=== PATIENT | male | born 1955 | race Caucasian/White ===

== ENCOUNTER → 2016-08-15 | Day surgery (SDC) | payer BC ==
[~2016-08-15] VITALS: Ht 180.3 cm; Wt 98.7 kg
[~2016-08-15] MED LIST: ASPIRIN EC81 MG PO; AZO STANDARD97.5 MG PO; BYSTOLIC10 MG PO; COLACE100 MG PO; COZAAR100 MG PO; CRESTOR40 MG PO; DITROPAN5 MG PO; FLOMAX0.4 MG PO; GLUCOPHAGE500 MG PO; NORCO 5-325 TA1 EACH PO; NORVASC5 MG PO; THERA-VITE W/ B1 TAB PO
--- NOTE | ~2016-08-15 | OR ---
PATIENT'S NAME: GILMA BRAMBILA [facility] AGE: 61 Y [address] ROOM: [place] [address] [place] [facility] [place] DATE: 08/15/2016 OR/Procedure Report DISCHARGE DATE: FAMILY PHYSICIAN: Jorge Castillo PA-C ATTENDING PHYSICIAN: RUBI WADE SURGEON: Rubi Wade MD TAXI PROPRIETOR: None. DATE OF PROCEDURE: 08/15/2016 PREOPERATIVE DIAGNOSES: 1. Left distal ureteral calculus. 2. History of gross hematuria. POSTOPERATIVE DIAGNOSES: 1. Left distal ureteral calculus. 2. History of gross hematuria. PROCEDURE: Left ureteroscopy, laser lithotripsy, ureteroscopic stone extraction, cystoscopy, and placement of indwelling left ureteral stent. ANESTHESIA ADMINISTERED: General endotracheal anesthesia. INDICATIONS FOR PROCEDURE: The patient is a pleasant 61-year-old male, who was initially evaluated for gross hematuria. During his workup, he was found to have a left distal 11 mm ureteral calculus. 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 He also did have somewhat of a high-riding bladder neck. The patient was explained the risks, benefits, indications, and alternatives of above procedure and wished to proceed and consented freely. DESCRIPTION OF OPERATION: The patient was brought back to the operating room, where he was placed on the OR table in the supine position. A surgical time- out was called where patient identification, surgical site, and procedure was then verified. We also did verify that the patient received IV Levaquin antibiotic within an hour of beginning the procedure. The patient was then moved and placed in a low lithotomy position. His genital area was then prepped and draped in the usual sterile fashion. I began by carefully advancing a rigid cystoscope easily into the patient's urinary bladder. His anterior urethra was within normal limits. His posterior urethra was notable for some moderate bilobar hyperplasia of the prostate with a high-riding bladder neck. Upon entering to his bladder, full joshi cystoscopy was performed. His ureteral orifices were noted to be in their orthotopic location. His bladder did have evidence of bladder outlet obstruction including moderate bladder trabeculations. Again, there was no evidence of any bladder stones, diverticula, cellules, or bladder tumors. I then PATIENT'S NAME: GILMA BRAMBILA [facility] AGE: 61 Y [address] ROOM: [place] [address] [place]ATION: [facility] [place]MIT DATE: 08/15/2016 OR/Procedure Report DISCHARGE DATE: FAMILY PHYSICIAN: Jorge Castillo PA-C ATTENDING PHYSICIAN: RUBI WADE carefully advanced a Sensor guidewire via his left ureteral orifice and was able to advance the wire past the left distal ureteral stone. I then emptied his bladder and then re-entered with a semi-rigid ureteroscope and utilized a second wire, to carefully navigate into his left distal ureter. I then came across the large distal ureteral stone, which appeared to be two sizable to extract without fragmentation. I then used the 600 micron holmium laser fiber to carefully fragment the stone. I used the [employer] stone basket to remove several of the larger stone fragments which were sent for stone analysis. On several repeat inspections on the ureter, there were no large residual fragments within the ureter nor was there any evidence of ureteral injury. I then withdrew the ureteroscope over the remaining wire, I advanced a 4.8- [place] multi-length ureteral stent deploying it, noting a good curl fluoroscopically in the patient's left renal collecting system as well as a good curl fluoroscopically in the patient's bladder. I then emptied the patient's bladder. The patient was then taken out of the lithotomy position where he was then awoken from general anesthesia, extubated, and transferred to the recovery bed and transported to the recovery room in good condition. COMPLICATIONS: None. DRAINS: Indwelling 4.8-[place] multi-length ureteral stent. ESTIMATED BLOOD LOSS: None. SPECIMEN: Stone for stone analysis. FOLLOWUP PLAN: We will plan to have the patient back for cystoscopy and stent removal in approximately 3 to 4 weeks in clinic. He will not need a KUB prior to stent removal. RUBI WADE MD GP/modl /[id number] CC: Brayden Damon MD d: 08/15/16 1129 t: 08/21/16 0835, OPERATIVE SUMMARY
[2016-08-15 08:30] LABS: BASOPHIL # 0.1 K/uL (0.0-0.2); BASOPHIL % 1.2 %; EOSINOPHIL # 0.4 K/uL (0.0-0.5); EOSINOPHIL % 5.7 %; HEMATOCRIT 40.3 % (37.0-53.0); HEMOGLOBIN 13.5 g/dL (11.0-16.0); IMMATURE GRANULOCYTE # 0.1 K/uL (0.0-0.3); IMMATURE GRANULOCYTE % 0.7 %; LYMPHOCYTE # 1.6 K/uL (0.8-4.0); LYMPHOCYTE % 22.9 %; MCHC 33.5 gm/dL (32.0-36.5); MCV 86.5 fl (83.0-98.0); MONOCYTE # 0.7 K/uL (0.0-1.0); MPV 9.6 fl (9.4-12.4); NEUTROPHIL # (ANC) 4.1 K/uL (1.4-9.0); NEUTROPHIL % 59.5 %; NRBC % 0 /100WBC (0-0.00); PLATELET COUNT 200 K/uL (150-450); RBC 4.66 M/uL (3.50-5.50); RDW-CV 13.5 % (11.9-14.6); WBC 6.9 K/uL (4.0-11.0)
[2016-08-15 08:49] LABS: ALBUMIN 3.6 gm/dL (3.5-5.0); ALK PHOS 68 IU/L (33-138); ALT 27 IU/L (12-78); ANION GAP 13.6 (10.0-19.0); AST 18 IU/L (10-40); BLOOD UREA NITROGEN 13 mg/dL (6-24); CALCIUM 8.4 mg/dL (8.5-10.5); CHLORIDE 108 mMol/L (96-110); CO2 26 mMol/L (22-32); CREATININE 0.7 mg/dL (0.6-1.3); ESTIMATED GFR (MDRD EQUATION) > 60; POTASSIUM 3.6 mMol/L (3.7-5.1); SODIUM 144 mMol/L (135-145); TOTAL BILIRUBIN 0.4 mg/dL (0.0-1.5)
== END | disposition disaster alternative care site (69) ==
LOC: GPOC 08-12 09:00 → GSDC 06:35
PROVIDERS: Urology
PROC: 0TF78ZZ Fragmentation in Left Ureter, Via Natural or Artificial Opening Endoscopic (ICD-10-PCS; principal; 2016-08-15)
PROC: 0T778DZ Dilation of Left Ureter with Intraluminal Device, Via Natural or Artificial Opening Endoscopic (ICD-10-PCS; 2016-08-15)
DX: N20.1 Calculus of ureter (principal); R31.0 Gross hematuria; I10 Essential (primary) hypertension; E11.9 Type 2 diabetes mellitus without complications; E78.5 Hyperlipidemia, unspecified; Z90.49 Acquired absence of other specified parts of digestive tract; Z98.890 Other specified postprocedural states
CPT/HCPCS: C1769; C2617; J1956; J2001; J7030